=== PATIENT | male | born 1965 | race Caucasian/White ===

== ENCOUNTER → 2016-08-17 | Outpatient (CLI) | payer OTHER, MEDICAID | LOC: BHFA 09:00 | PROVIDERS: ATTEND Internal Medicine Cardiovascular Disease | DX: I46.9 Cardiac arrest, cause unspecified (principal) ==

== ENCOUNTER → 2016-08-22 | Outpatient (CLI) | payer OTHER, MEDICAID | LOC: BHFA 11:30 | PROVIDERS: ATTEND Internal Medicine Cardiovascular Disease | DX: R07.9 Chest pain, unspecified (principal) ==

== ENCOUNTER → 2018-08-08 | Outpatient (CLI) | payer OTHER, MEDICAID ==
[~2018-08-08] MED LIST: IOPAMIDOL (ISOVUE 370) 100 ML BTL IV ONE
== END ==
LOC: FIMAGING 12:53
PROVIDERS: ATTEND Internal Medicine Gastroenterology
DX: K57.30 Diverticulosis of large intestine without perforation or abscess without bleeding (principal); I70.8 Atherosclerosis of other arteries
CPT/HCPCS: 74177; Q9967

== ENCOUNTER 2018-08-15 14:31 | Inpatient (IN) | payer OTHER, MEDICAID ==
[2018-08-15] MEDS ORDERED: NS 1,000 ML IV ONE (14:38)
--- NOTE | 2018-08-15 14:41 | EDPHY ---
H & P Stated Complaint: Found down outside of home. BS 140. Pt doesnt know what happened Time Seen by Provider: 08/15/18 14:39 HPI/ROS: HPI CHIEF COMPLAINT: Found down on sidewalk. Patient unsure what happened. HISTORY OF PRESENT ILLNESS: 52-year-old male, poor historian, presents emergency room the by EMS after an neighbor found him unresponsive on the sidewalk face down. Patient does not recall what happened. He states he has medical problems but is unsure what medications he takes. He thinks he has asthma/COPD. He denies any chest pain or shortness of breath. He presents to the emergency room with a bloody nose. He denies any neck or headache. Denies chest pain or shortness of breath. Patient is unsure what happened. EMS reports that neighbors woke him up when he they found him outside on the sidewalk. He stated to come 2-3 minutes to get up. Past Medical History: Asthma. Possible COPD. Takes metformin. Cardiac arrest. Schizophrenia. Past Surgical History: No recent surgical history Social History: Denies drugs or alcohol. Does smoke tobacco. Occasional marijuana. Family History: Noncontributory ROS REVIEW OF SYSTEMS: Poor historian. Exam Constitutional nontoxic, obese, triage nursing summary reviewed, vital signs reviewed, awake/alert. Vital signs stable Eyes normal conjunctivae and sclera, EOMI, PERRLA. HENT epistaxis without any significant septal hematoma on exam, otherwise midface and head and neck atraumatic, normal inspection, atraumatic, moist mucus membranes, no epistaxis, neck supple/ no meningismus, no raccoon eyes. Respiratory clear to auscultation bilaterally, normal breath sounds, no respiratory distress, no wheezing. Cardiovascular rate normal, regular rhythm, no murmur, no edema, distal pulses normal. Gastrointestinal soft, non-tender, no rebound, no guarding, normal bowel sounds, no distension, no pulsatile mass. Genitourinary no CVA tenderness. Musculoskeletal no midline vertebral tenderness, full range of motion, no calf swelling, no tenderness of extremities, no meningismus, good pulses, neurovascularly intact. Skin pink, warm, & dry, no rash, skin atraumatic. Neurologic awake, alert and oriented x 3, AAOx3, moves all 4 extremities equally, motor intact, sensory intact, CN II-XII intact, normal cerebellar, normal vision, normal speech. Psychiatric normal mood/affect. Heme/Lymph/Immune no lymphadenopathy. Differential Diagnosis: Includes but is not limited to in a particular order syncope, cardiac arrhythmia, ACS, PE, intracranial bleed, cervical spine injury , facial trauma Medical Decision Making: Plan for this patient he is unsure what happened to him he does not recall the events he was found unresponsive on the sidewalk face down with a bloody nose. Re-evaluation: Plan for this patient IV establishment surveillance monitor obtain EKG basic blood work, CT scan head without contrast CT cervical spine without contrast, chest x- ray, troponin, electrolytes and re-evaluate. EKG interpretation by me on record in [employer] system. Impression time of EKG 1449, sinus rhythm rate of 98 without any signs of acute ischemia. CT scan head without contrast and CT cervical spine without contrast negative for acute traumatic injury called to me by Dr. Duran. Troponin noted be negative. Chest x-ray are unremarkable CT scan head without and cervical spine negative. Sodium slightly low. Plan for admission the hospital for syncope. Plan for this patient unexplained syncope and found down on the sidewalk. Plan for admission to the hospital I spoke with Dr. Smiley, Who agrees to admit. Source: Patient, EMS Exam Limitations: Clinical condition - Personal History Current Tetanus Diphtheria and Acellular Pertussis (TDAP): Unsure - Medical/Surgical History Hx Asthma: Yes Hx Diabetes: Yes Other PMH: dm, asthma, copd - Social History Smoking Status: Current every day smoker Constitutional: Initial Vital Signs Temperature (C) 36.8 C 08/15/18 14:34 Heart Rate 105 H 08/15/18 14:34 Respiratory Rate 16 08/15/18 14:34 Blood Pressure 151/102 H 08/15/18 14:34 O2 Sat (%) 94 08/15/18 14:34 O2 Delivery Mode Room Air O2 (L/minute) 2 Allergies/Adverse Reactions: No Known Allergies Allergy (Unverified 01/10/11 17:15) Home Medications: Medication Instructions Recorded ARIPiprazole [Abilify] 30 mg PO DAILY 08/15/18 Albuterol [Proventil Inhaler HFA 1 - 2 puffs IH Q4H PRN 08/15/18 (*)] Atorvastatin Calcium [Lipitor 40 40 mg PO DAILY 08/15/18 mg (*)] Gabapentin [Neurontin 100 MG (*)] 100 mg PO QID 08/15/18 Levothyroxine [Synthroid 25 mcg 25 mcg PO DAILY06 08/15/18 (*)] Lisinopril [Zestril 40 mg (*)] 40 mg PO DAILY 08/15/18 Metoprolol Tartrate [Lopressor 25 25 mg PO BID 08/15/18 mg (*)] QUEtiapine FUMARATE [Seroquel 100 100 mg PO HS 08/15/18 mg (*)] QUEtiapine FUMARATE [Seroquel 50 50 mg PO HS 08/15/18 mg (*)] Tamsulosin HCl [Flomax 0.4 MG (*)] 0.4 mg PO DAILY 08/15/18 Venlafaxine HCl [Venlafaxine HCl 75 mg PO DAILY 08/15/18 ER] amLODIPine BESYLATE [Amlodipine 5 mg PO DAILY 08/15/18 Besylate] metFORMIN HCL [Metformin HCl ER] 500 mg PO BIDMEAL 08/15/18 Medical Decision Making - Diagnostics Imaging Results: Imaging Impressions Cervical Spine CT 08/15/18 14:38 Impression: No evidence for acute intracranial abnormality. CT cervical spine without contrast History: Trauma. Fall. Technique: 1.5-mm helical images were obtained of the cervical spine without contrast. Multiplanar reformation was performed. Radiation dose reduction technique was utilized. Findings: There is mild reversal of the normal lordotic curvature. No evidence for fracture or subluxation. There is disk height narrowing and osteophytosis at multiple levels in the cervical spine. No evidence for prevertebral soft tissue swelling. Vascular calcifications are seen in the carotids bilaterally, indicating atherosclerotic change. Mild scarring is seen at the left lung apex. Degenerative change is seen at the sternoclavicular joint bilaterally. C2-C3 level demonstrates facet arthropathy bilaterally, more predominant on the left with moderate left neural foraminal narrowing. C3-C4 level demonstrates uncovertebral joint hypertrophy on the left. There is facet arthropathy bilaterally. There is mild left neural foraminal narrowing. C4-C5 level demonstrates a broad-based annular bulge and posterior osteophytosis. Uncovertebral joint hypertrophy is seen bilaterally. There is mild bilateral neural foraminal narrowing. C5-C6 level demonstrates a mild broad-based annular bulge and posterior osteophytosis. Uncovertebral joint hypertrophy is seen bilaterally and facet arthropathy bilaterally with mild bilateral neural foraminal narrowing. C6-C7 level demonstrates mild uncovertebral joint hypertrophy on the left and mild facet arthropathy with minimal left neural foraminal narrowing. C7-T1 level demonstrates facet arthropathy with minimal bilateral neural foraminal narrowing. Impression: No evidence for acute fracture. Multilevel degenerative disk and degenerative joint disease in the cervical spine. Evidence of atherosclerotic disease in the carotid arteries bilaterally. Results called and discussed with Dr. Luis Alberto Sidhu on August 15, 2018 at 1531 hours. Chest X-Ray 08/15/18 14:38 Impression: Negative portable trauma chest. Head CT 08/15/18 14:38 Impression: No evidence for acute intracranial abnormality. CT cervical spine without contrast History: Trauma. Fall. Technique: 1.5-mm helical images were obtained of the cervical spine without contrast. Multiplanar reformation was performed. Radiation dose reduction technique was utilized. Findings: There is mild reversal of the normal lordotic curvature. No evidence for fracture or subluxation. There is disk height narrowing and osteophytosis at multiple levels in the cervical spine. No evidence for prevertebral soft tissue swelling. Vascular calcifications are seen in the carotids bilaterally, indicating atherosclerotic change. Mild scarring is seen at the left lung apex. Degenerative change is seen at the sternoclavicular joint bilaterally. C2-C3 level demonstrates facet arthropathy bilaterally, more predominant on the left with moderate left neural foraminal narrowing. C3-C4 level demonstrates uncovertebral joint hypertrophy on the left. There is facet arthropathy bilaterally. There is mild left neural foraminal narrowing. C4-C5 level demonstrates a broad-based annular bulge and posterior osteophytosis. Uncovertebral joint hypertrophy is seen bilaterally. There is mild bilateral neural foraminal narrowing. C5-C6 level demonstrates a mild broad-based annular bulge and posterior osteophytosis. Uncovertebral joint hypertrophy is seen bilaterally and facet arthropathy bilaterally with mild bilateral neural foraminal narrowing. C6-C7 level demonstrates mild uncovertebral joint hypertrophy on the left and mild facet arthropathy with minimal left neural foraminal narrowing. C7-T1 level demonstrates facet arthropathy with minimal bilateral neural foraminal narrowing. Impression: No evidence for acute fracture. Multilevel degenerative disk and degenerative joint disease in the cervical spine. Evidence of atherosclerotic disease in the carotid arteries bilaterally. Results called and discussed with Dr. Luis Alberto Sidhu on August 15, 2018 at 1531 hours. - Data Points Laboratory Results: Laboratory Results 08/15/18 14:58 08/15/18 14:58 08/15/18 08/15/18 08/15/18 15:02 14:58 14:58 WBC RBC Hgb Hct MCV MCH MCHC RDW Plt Count MPV Neut % (Auto) Lymph % (Auto) [place] % (Auto) Eos % (Auto) Baso % (Auto) Nucleat RBC Rel Count Absolute Neuts (auto) Absolute Lymphs (auto) Absolute Monos (auto) Absolute Eos (auto) Absolute Basos (auto) Absolute Nucleated RBC Immature Gran % Immature Gran # PT INR APTT D-Dimer 1.99 ug/mLFEU H ug/mLFEU (0.00-0.50) Sodium 128 mEq/L L mEq/L (135-145) Potassium 4.7 mEq/L mEq/L (3.5-5.2) Chloride 93 mEq/L L mEq/L (97-110) Carbon Dioxide 23 mEq/l mEq/l (22-31) Anion Gap 12 mEq/L mEq/L (6-14) BUN 7 mg/dL mg/dL (7-23) Creatinine 0.6 mg/dL L mg/dL (0.7-1.3) Estimated GFR > 60 Glucose 149 mg/dL H mg/dL (70-100) Calcium 8.8 mg/dL mg/dL (8.5-10.4) Magnesium Total Bilirubin Conjugated Bilirubin Unconjugated Bilirubin AST ALT Alkaline Phosphatase POC Troponin I 0.02 ng/mL ng/mL (0.00-0.08) Total Protein Albumin Lipase Ethyl Alcohol < 10 mg/dL mg/dL (0-10) 08/15/18 08/15/18 08/15/18 14:58 14:58 14:00 WBC 8.98 10^3/uL 10^3/uL (3.80-9.50) RBC 4.66 10^6/uL 10^6/uL (4.40-6.38) Hgb 16.1 g/dL g/dL (13.7-17.5) Hct 46.3 % % (40.0-51.0) MCV 99.4 fL fL (81.5-99.8) MCH 34.5 pg H pg (27.9-34.1) MCHC 34.8 g/dL g/dL (32.4-36.7) RDW 13.9 % % (11.5-15.2) Plt Count 204 10^3/uL 10^3/uL (150-400) MPV 11.0 fL fL (8.7-11.7) Neut % (Auto) 68.6 % % (39.3-74.2) Lymph % (Auto) 21.3 % % (15.0-45.0) [place] % (Auto) 7.3 % % (4.5-13.0) Eos % (Auto) 1.2 % % (0.6-7.6) Baso % (Auto) 0.6 % % (0.3-1.7) Nucleat RBC Rel Count 0.0 % % (0.0-0.2) Absolute Neuts (auto) 6.16 10^3/uL 10^3/uL (1.70-6.50) Absolute Lymphs (auto) 1.91 10^3/uL 10^3/uL (1.00-3.00) Absolute Monos (auto) 0.66 10^3/uL 10^3/uL (0.30-0.80) Absolute Eos (auto) 0.11 10^3/uL 10^3/uL (0.03-0.40) Absolute Basos (auto) 0.05 10^3/uL 10^3/uL (0.02-0.10) Absolute Nucleated RBC 0.00 10^3/uL 10^3/uL (0-0.01) Immature Gran % 1.0 % % (0.0-1.1) Immature Gran # 0.09 10^3/uL 10^3/uL (0.00-0.10) PT 13.1 SEC SEC (12.0-15.0) INR 0.97 (0.83-1.16) APTT 25.3 SEC SEC (23.0-38.0) D-Dimer Sodium Potassium Chloride Carbon Dioxide Anion Gap BUN Creatinine Estimated GFR Glucose Calcium Magnesium 1.4 mg/dL L mg/dL (1.6-2.3) Total Bilirubin 0.5 mg/dL mg/dL (0.1-1.4) Conjugated Bilirubin 0.4 mg/dL mg/dL (0.0-0.5) Unconjugated Bilirubin 0.1 mg/dL mg/dL (0.0-1.1) AST 68 IU/L H IU/L (17-59) ALT 110 IU/L H IU/L (21-72) Alkaline Phosphatase 208 IU/L H IU/L (38-126) POC Troponin I Total Protein 8.0 g/dL g/dL (6.3-8.2) Albumin 4.3 g/dL g/dL (3.5-5.0) Lipase 315 IU/L H IU/L (23-300) Ethyl Alcohol Medications Given: Gabapentin (Neurontin) 100 mg PO QID HELIO Stop: 02/11/19 20:59 Last Admin: 08/15/18 20:23 Dose: 100 mg Sodium Chloride (Ns) 1,000 mls @ 75 mls/hr IV CONT HELIO Stop: 02/11/19 16:29 Last Admin: 08/15/18 20:23 Dose: 1,000 mls Melatonin (Melatonin) 3 mg PO HS HELIO Stop: 02/11/19 20:59 Last Admin: 08/15/18 20:23 Dose: 3 mg Metoprolol Tartrate (Lopressor) 25 mg PO BID HELIO Stop: 02/11/19 20:59 Last Admin: 08/15/18 20:23 Dose: 25 mg Quetiapine Fumarate (Seroquel) 100 mg PO HS HELIO Stop: 02/11/19 20:59 Last Admin: 08/15/18 20:22 Dose: 100 mg Quetiapine Fumarate (Seroquel) 50 mg PO HS HELIO Stop: 02/11/19 20:59 Last Admin: 08/15/18 20:22 Dose: 50 mg Discontinued Medications Sodium Chloride (Ns) 1,000 mls @ 0 mls/hr IV ONCE ONE; Wide Open PRN Reason: Protocol Stop: 08/15/18 14:39 Last Admin: 08/15/18 15:01 Dose: 1,000 mls Magnesium Sulfate (Magnesium Sulf 2 Gm (Premix)) 50 mls @ 50 mls/hr IV ONCE ONE Stop: 08/15/18 18:17 Last Admin: 08/15/18 20:23 Dose: 50 mls Point of Care Test Results: Chemistry 08/15/18 15:02 POC Troponin I 0.02 ng/mL ng/mL (0.00-0.08) Departure - Departure Disposition: [facility] Inpatient Acute Clinical Impression: Syncope Condition: Fair
[2018-08-15 15:21] LABS: PLATELET COUNT 204 10^3/uL (150-400)
[2018-08-15 15:33] LABS: INR 0.97 (0.83-1.16); PROTIME(PATIENT) 13.1 SEC (12.0-15.0)
[2018-08-15] MEDS ORDERED: ONDANSETRON 4 MG/2 ML VIAL IVP PRN (16:29)
[2018-08-15] MEDS ORDERED: PROTOCOL MAGNESIUM 1 DOSE IV PRN (16:58)
[2018-08-15] MEDS ORDERED: MAGNESIUM SULF 2 GM/WATER 50 ML IV ONE (17:18)
[2018-08-15] MEDS ORDERED: ONDANSETRON DISINTEGRATING 4 MG TAB PO PRN (17:37)
--- NOTE | 2018-08-15 17:53 | PDGENHP ---
<Steffi Haji - Last Filed: 08/15/18 18:57> History and Physical - Chief Complaint Syncopal episode - History of Present Illness 52 y/o male with history of cardiac arrest, obesity, and hyperlipidemia presents via EMS after a neighbor found him unresponsive on the sidewalk face down. The patient is unable to recall events leading up to the syncopal episode. He is A&Ox2 (person, place). Per the neighbor, it took him 2-3 minutes to become responsive. The pt remember being in a stretcher and the "couch" in the ambulance. He presented with a bloody nose. This is my first encounter with the pt. He reports left sided anterior chest pain below the nipple that he rates 7/10 in intensity and describes it as stabbing. It worsens when he inhales deeply. Pain does not radiate. Endorses nausea, no vomiting. Cervical spine CT, head CT, CXR are unremarkable however do note bilateral carotid arthrosclerosis. He is a poor historian. Primary care physician: Jacqueline Parsons at [facility]. He is being admitted for further diagnostic work-up and monitoring. Past Medical/Surgical History 1. GREGORY with CPAP (however, it has been noted in previous records he has been noncompliant with use) 2. COPD/restrictive disease 3. Depression 4. Cardiac arrest (2016) 5. Paranoid schizophrenia 6. Hyperlipidemia 7. Obesity 8. Diabetes II 9. Hypertension Social 1. Smokes a pack of cigarettes/day. Occasionally smokes cannabis. Denies alcohol use. 2. Has housing through [facility] [facility]; on disability History Information - Allergies/Home Medication List Allergies/Adverse Reactions: No Known Allergies Allergy (Unverified 01/10/11 17:15) Home Medications: ARIPiprazole [Abilify] 30 mg PO DAILY 08/15/18 [Last Taken Unknown] Albuterol [Proventil Inhaler HFA (*)] 1 - 2 puffs IH Q4H PRN 08/15/18 [Last Taken Unknown] Atorvastatin Calcium [Lipitor 40 mg (*)] 40 mg PO DAILY 08/15/18 [Last Taken Unknown] Gabapentin [Neurontin 100 MG (*)] 100 mg PO QID 08/15/18 [Last Taken Unknown] Levothyroxine [Synthroid 25 mcg (*)] 25 mcg PO DAILY06 08/15/18 [Last Taken Unknown] Lisinopril [Zestril 40 mg (*)] 40 mg PO DAILY 08/15/18 [Last Taken Unknown] Metoprolol Tartrate [Lopressor 25 mg (*)] 25 mg PO BID 08/15/18 [Last Taken Unknown] QUEtiapine FUMARATE [Seroquel 100 mg (*)] 100 mg PO HS 08/15/18 [Last Taken Unknown] QUEtiapine FUMARATE [Seroquel 50 mg (*)] 50 mg PO HS 08/15/18 [Last Taken Unknown] Tamsulosin HCl [Flomax 0.4 MG (*)] 0.4 mg PO DAILY 08/15/18 [Last Taken Unknown] Venlafaxine HCl [Venlafaxine HCl ER] 75 mg PO DAILY 08/15/18 [Last Taken Unknown ] amLODIPine BESYLATE [Amlodipine Besylate] 5 mg PO DAILY 08/15/18 [Last Taken Unknown] metFORMIN HCL [Metformin HCl ER] 500 mg PO BIDMEAL 08/15/18 [Last Taken Unknown] I have personally reviewed and updated: family history, medical history, social history, surgical history Past Medical History: See HPI list - Surgical History Additional surgical history: See HPI list - Family History Positive for: non-pertinent - Social History Smoking Status: Current every day smoker Alcohol Use: None Drug Use: Marijuana Review of Systems Review of Systems: ROS: 10pt was reviewed & negative except for what was stated in HPI & below Constitutional: Reports: recent injury, weakness EENMT: Reports: nose pain Cardiac: Reports: chest pain Respiratory: Reports: no symptoms Gastrointestinal: Reports: nausea Genitourinary: Reports: no symptoms Muscolosketal: Reports: no symptoms Skin: Reports: no symptoms Neurological: Reports: depressed, emotional problems Hematologic/Lymphatic: Reports: no symptoms Immunologic/Allergy: Reports: no symptoms Physical Exam Physical Exam: Lab data and imaging were reviewed Temp Pulse Resp BP Pulse Ox 36.9 C 84 13 129/88 H 90 L 08/15/18 17:40 08/15/18 17:40 08/15/18 17:40 08/15/18 17:40 08/15/18 17:40 Constitutional: no apparent distress, appears nourished, not in pain, obese, unkempt Eyes: PERRL, anicteric sclera, EOMI Ears, Nose, Mouth, Throat: hearing normal, ears appear normal, no oral mucosal ulcers, dry mucous membranes Cardiovascular: regular rate and rhythym, no murmur, rub, or gallop, tachycardia , No edema Peripheral Pulses: 2+: dorsalis-pedis (R) (Radial 2+), dorsalis-pedis (L) ( Radial 2+) Respiratory: expiratory wheeze Gastrointestinal: soft, non-tender abdomen, no palpable masses, other ( Hypoactive bowel sounds) Genitourinary: no bladder fullness, no bladder tenderness Skin: warm, normal color, no fluctuance, no induration, abrasion (Nose), No mottled Musculoskeletal: full muscle strength, no muscle tenderness, normal joint ROM, no joint effusions Neurologic: AAOx3, sensation intact bilaterally, CN II-XII Intact Psychiatric: flat affect, poor memory Lymph, Heme, Immunologic: no cervical LAD, no supraclavicular LAD Lab Data & Imaging Review 08/15/18 14:58 08/15/18 14:58 WBC 8.98 10^3/uL (3.80-9.50) 08/15/18 14:58 RBC 4.66 10^6/uL (4.40-6.38) 08/15/18 14:58 Hgb 16.1 g/dL (13.7-17.5) 08/15/18 14:58 Hct 46.3 % (40.0-51.0) 08/15/18 14:58 MCV 99.4 fL (81.5-99.8) 08/15/18 14:58 MCH 34.5 pg (27.9-34.1) H 08/15/18 14:58 MCHC 34.8 g/dL (32.4-36.7) 08/15/18 14:58 RDW 13.9 % (11.5-15.2) 08/15/18 14:58 Plt Count 204 10^3/uL (150-400) 08/15/18 14:58 MPV 11.0 fL (8.7-11.7) 08/15/18 14:58 Neut % (Auto) 68.6 % (39.3-74.2) 08/15/18 14:58 Lymph % (Auto) 21.3 % (15.0-45.0) 08/15/18 14:58 [place] % (Auto) 7.3 % (4.5-13.0) 08/15/18 14:58 Eos % (Auto) 1.2 % (0.6-7.6) 08/15/18 14:58 Baso % (Auto) 0.6 % (0.3-1.7) 08/15/18 14:58 Nucleat RBC Rel Count 0.0 % (0.0-0.2) 08/15/18 14:58 Absolute Neuts (auto) 6.16 10^3/uL (1.70-6.50) 08/15/18 14:58 Absolute Lymphs (auto) 1.91 10^3/uL (1.00-3.00) 08/15/18 14:58 Absolute Monos (auto) 0.66 10^3/uL (0.30-0.80) 08/15/18 14:58 Absolute Eos (auto) 0.11 10^3/uL (0.03-0.40) 08/15/18 14:58 Absolute Basos (auto) 0.05 10^3/uL (0.02-0.10) 08/15/18 14:58 Absolute Nucleated RBC 0.00 10^3/uL (0-0.01) 08/15/18 14:58 Immature Gran % 1.0 % (0.0-1.1) 08/15/18 14:58 Immature Gran # 0.09 10^3/uL (0.00-0.10) 08/15/18 14:58 PT 13.1 SEC (12.0-15.0) 08/15/18 14:58 INR 0.97 (0.83-1.16) 08/15/18 14:58 APTT 25.3 SEC (23.0-38.0) 08/15/18 14:58 Sodium 128 mEq/L (135-145) L 08/15/18 14:58 Potassium 4.7 mEq/L (3.5-5.2) 08/15/18 14:58 Chloride 93 mEq/L (97-110) L 08/15/18 14:58 Carbon Dioxide 23 mEq/l (22-31) 08/15/18 14:58 Anion Gap 12 mEq/L (6-14) 08/15/18 14:58 BUN 7 mg/dL (7-23) 08/15/18 14:58 Creatinine 0.6 mg/dL (0.7-1.3) L 08/15/18 14:58 Estimated GFR > 60 08/15/18 14:58 Glucose 149 mg/dL (70-100) H 08/15/18 14:58 Calcium 8.8 mg/dL (8.5-10.4) 08/15/18 14:58 Magnesium 1.4 mg/dL (1.6-2.3) L 08/15/18 14:00 Total Bilirubin 0.5 mg/dL (0.1-1.4) 08/15/18 14:00 Conjugated Bilirubin 0.4 mg/dL (0.0-0.5) 08/15/18 14:00 Unconjugated Bilirubin 0.1 mg/dL (0.0-1.1) 08/15/18 14:00 AST 68 IU/L (17-59) H 08/15/18 14:00 ALT 110 IU/L (21-72) H 08/15/18 14:00 Alkaline Phosphatase 208 IU/L (38-126) H 08/15/18 14:00 POC Troponin I 0.02 ng/mL (0.00-0.08) 08/15/18 15:02 Total Protein 8.0 g/dL (6.3-8.2) 08/15/18 14:00 Albumin 4.3 g/dL (3.5-5.0) 08/15/18 14:00 Lipase 315 IU/L (23-300) H 08/15/18 14:00 Ethyl Alcohol < 10 mg/dL (0-10) 08/15/18 14:58 Assessment & Plan Plan: This is a 52 y/o male presenting after a syncopal episode today and cannot remember the circumstances leading up to the event. He can't remember last night either or the day before that. After further questioning, he did remember he took his medications this morning and he went out to retrieve his mail but that is all he can remember. 1. Syncopal episode with unknown etiology: he has had a cardiac arrest in June 2016. Echo was performed July 2016 and was unremarkable with LVEF 65%. He is c/o chest pain now. Heart score 2 (age and 1-2 risk factors). -First troponin negative (0.02); cycle one troponin tonight and another tomorrow morning -EKG was SR with no acute ischemia or evidence of ST elevation. Cycle one more EKG tomorrow morning. -Continuous tele monitoring -Drug tox screen pending; etoh screen negative -Checking TSH -D-dimer elevated (1.99): ordered Chest CTA to r/o pulmonary embolism ( tachycardic, chest pain/pleuritic pain, worsens with deep inspiration) -Consulted neurology: I spoke with Dr. Pierre Almanza who will evaluate the pt tomorrow. Recommended brain MRI w/ IV contrast. Consider ordering brain MRI should chest CTA be negative. 2. Hyponatremia (128) -IVF -Checking urine sodium -Recheck BMP tomorrow 3. Hypomagnesemia (1.7) -Initiated magnesium protocol -Replace with IV magnesium 4. Diabetes -Holding metformin while in hospital -Initiated insulin sliding scale 5. COPD: on albuterol PRN. may continue 6. Hypertension: currently stable. on norvasc, lisinopril, metoprolol 7. Depression/schizophrenia: on Abilify, gabapentin, seroquel, venlafaxine Diet: Regular VTE ppx: SCDs Code: Full Dispo: Admit to inpatient <Nikunj Smiley - Last Filed: 08/15/18 22:36> History and Physical - History of Present Illness Review of Systems Review of Systems: Physical Exam Physical Exam: Temp Pulse Resp BP Pulse Ox 36.8 C 84 14 129/88 H 96 08/15/18 20:00 08/15/18 20:23 08/15/18 20:00 08/15/18 20:23 08/15/18 20:00 O2 (L/minute) 2 Lab Data & Imaging Review 08/15/18 14:58 08/15/18 14:58 WBC 8.98 10^3/uL (3.80-9.50) 08/15/18 14:58 RBC 4.66 10^6/uL (4.40-6.38) 08/15/18 14:58 Hgb 16.1 g/dL (13.7-17.5) 08/15/18 14:58 Hct 46.3 % (40.0-51.0) 08/15/18 14:58 MCV 99.4 fL (81.5-99.8) 08/15/18 14:58 MCH 34.5 pg (27.9-34.1) H 08/15/18 14:58 MCHC 34.8 g/dL (32.4-36.7) 08/15/18 14:58 RDW 13.9 % (11.5-15.2) 08/15/18 14:58 Plt Count 204 10^3/uL (150-400) 08/15/18 14:58 MPV 11.0 fL (8.7-11.7) 08/15/18 14:58 Neut % (Auto) 68.6 % (39.3-74.2) 08/15/18 14:58 Lymph % (Auto) 21.3 % (15.0-45.0) 08/15/18 14:58 Radford % (Auto) 7.3 % (4.5-13.0) 08/15/18 14:58 Eos % (Auto) 1.2 % (0.6-7.6) 08/15/18 14:58 Baso % (Auto) 0.6 % (0.3-1.7) 08/15/18 14:58 Nucleat RBC Rel Count 0.0 % (0.0-0.2) 08/15/18 14:58 Absolute Neuts (auto) 6.16 10^3/uL (1.70-6.50) 08/15/18 14:58 Absolute Lymphs (auto) 1.91 10^3/uL (1.00-3.00) 08/15/18 14:58 Absolute Monos (auto) 0.66 10^3/uL (0.30-0.80) 08/15/18 14:58 Absolute Eos (auto) 0.11 10^3/uL (0.03-0.40) 08/15/18 14:58 Absolute Basos (auto) 0.05 10^3/uL (0.02-0.10) 08/15/18 14:58 Absolute Nucleated RBC 0.00 10^3/uL (0-0.01) 08/15/18 14:58 Immature Gran % 1.0 % (0.0-1.1) 08/15/18 14:58 Immature Gran # 0.09 10^3/uL (0.00-0.10) 08/15/18 14:58 PT 13.1 SEC (12.0-15.0) 08/15/18 14:58 INR 0.97 (0.83-1.16) 08/15/18 14:58 APTT 25.3 SEC (23.0-38.0) 08/15/18 14:58 D-Dimer 1.99 ug/mLFEU (0.00-0.50) H 08/15/18 14:58 Sodium 128 mEq/L (135-145) L 08/15/18 14:58 Potassium 4.7 mEq/L (3.5-5.2) 08/15/18 14:58 Chloride 93 mEq/L (97-110) L 08/15/18 14:58 Carbon Dioxide 23 mEq/l (22-31) 08/15/18 14:58 Anion Gap 12 mEq/L (6-14) 08/15/18 14:58 BUN 7 mg/dL (7-23) 08/15/18 14:58 Creatinine 0.6 mg/dL (0.7-1.3) L 08/15/18 14:58 Estimated GFR > 60 08/15/18 14:58 Glucose 149 mg/dL (70-100) H 08/15/18 14:58 Calcium 8.8 mg/dL (8.5-10.4) 08/15/18 14:58 Magnesium 1.4 mg/dL (1.6-2.3) L 08/15/18 14:00 Total Bilirubin 0.5 mg/dL (0.1-1.4) 08/15/18 14:00 Conjugated Bilirubin 0.4 mg/dL (0.0-0.5) 08/15/18 14:00 Unconjugated Bilirubin 0.1 mg/dL (0.0-1.1) 08/15/18 14:00 AST 68 IU/L (17-59) H 08/15/18 14:00 ALT 110 IU/L (21-72) H 08/15/18 14:00 Alkaline Phosphatase 208 IU/L (38-126) H 08/15/18 14:00 POC Troponin I 0.02 ng/mL (0.00-0.08) 08/15/18 15:02 Troponin I 0.062 ng/mL (0.000-0.034) H 08/15/18 19:30 Total Protein 8.0 g/dL (6.3-8.2) 08/15/18 14:00 Albumin 4.3 g/dL (3.5-5.0) 08/15/18 14:00 Lipase 315 IU/L (23-300) H 08/15/18 14:00 TSH 5.070 uIU/mL (0.465-4.680) H 08/15/18 19:30 Urine Color PALE YELLOW 08/15/18 18: Urine Appearance CLEAR 08/15/18 18: Urine pH 7.0 (5.0-7.5) 08/15/18 18: Ur Specific [place] 1.002 (1.002-1.030) 08/15/18 18: Urine Protein NEGATIVE (NEGATIVE) 08/15/18 18: Urine Ketones NEGATIVE (NEGATIVE) 08/15/18 18: Urine Blood 1+ (NEGATIVE) H 08/15/18 18: Urine Nitrate NEGATIVE (NEGATIVE) 08/15/18 18: Urine Bilirubin NEGATIVE (NEGATIVE) 08/15/18 18: Urine Urobilinogen NEGATIVE EU (0.2-1.0) 08/15/18 18: Ur Leukocyte Esterase NEGATIVE (NEGATIVE) 08/15/18 18: Urine RBC 1-3 /hpf (0-3) 08/15/18 18: Urine WBC 1-3 /hpf (0-3) 08/15/18 18:26 Ur Epithelial Cells NONE SEEN /lpf (NONE-1+) 08/15/18 18: Ur Random Sodium 27 mEq/L (30-90) L 08/15/18 18: Urine Glucose NEGATIVE (NEGATIVE) 08/15/18 18: Urine Opiates Screen NEGATIVE ng/mL (NEGATIVE) 08/15/18 18: Urine Barbiturates NEGATIVE ng/mL (NEGATIVE) 08/15/18 18: Ur Phencyclidine Scrn NEGATIVE ng/mL (NEGATIVE) 08/15/18 18: Ur Amphetamines Screen NEGATIVE ng/mL (NEGATIVE) 08/15/18 18:26 U Benzodiazepines Scrn NEGATIVE ng/mL (NEGATIVE) 08/15/18 18:26 Urine Cocaine Screen NEGATIVE ng/mL (NEGATIVE) 08/15/18 18:26 U Marijuana (THC) Screen 66 ng/mL (NEGATIVE) 08/15/18 18:26 Ethyl Alcohol < 10 mg/dL (0-10) 08/15/18 14:58 Assessment & Plan Assessment: Syncope (Acute) Plan: Hospitalist note I have evaluated the patient at the bedside on this date and reviewed the patient with Cristy Haji nurse practitioner in detail and I have also reviewed the patient with Dr. Luis Alberto Sidhu. I reviewed this patient's clinic records in detail and in the Cardiology Clinic notes it is mentioned that the patient has a reported history of cardiac arrest some years ago evaluated at another hospital. Details are unclear and there is some mention of the patient possibly having been told by the outside stone paver at that time that he had a possible stress cardiomyopathy syndrome. In the recent past here the patient has had unremarkable nuclear stress testing, unremarkable Holter monitoring, and an echocardiogram showing ejection fraction in the 60s, up from previously low 40s. He sees Dr. Andrew Berrios who diagnosis the patient with hypertensive heart disease. In addition to the COPD mentioned above, his records also show that he has a history of CB apnea and has used CPAP at least in the past. At this time when I try and interviewed the patient he will not talk with me states that he only wants to sleep at this time and only passively participates in examination I am unable to therefore to clarify whether I think the history above is entirely accurate but I believe that the patient probably does not remember anything well enough to change the history as described above. On examination he is obese, awakens, confirms his name, but will not answer any other questions for me stating once ago sleep. He is obese He is breathing adequately Skin is warm dry Lungs are diminished but clear Heart tones are in audible Neck is too obese to determine jugular venous distension There is 1+ edema of the legs I reviewed his sodium which is at 128 and other labs are reviewed as well I did order urine sodium which comes back at 27 going along with his hypervolemic hyponatremia with heart disease DIAGNOSES: * Presumed syncope today found unconscious on sidewalk with facial injury in the way of nose bleed * Left-sided chest discomfort could potentially be due to his fall or could be cardiac though has recent negative nuclear stress test * Mild Acute R sidedCHF * No evidence of pulmonary embolisms on CT today * Newly diagnosed spiculated lung nodule in the right lung 1.5 cm * Hypervolemic hyponatremia with low urine sodium is likely due to heart failure , not consistent with SIADH * History of self-reported cardiac arrest diagnosed at another hospital, with question of possible Takotsubo stress myocarditis at that time but records not available for my review * Recent negative cardiac workup here including echo, Holter, stress with myocardial perfusion * Known COPD, sleep apnea, and I suspect also has pulmonary hypertension, may have obesity hypoventilation syndrome * Diabetes * Morbid obesity * Schizophrenia Of significant concern in this patient is the use of both Abilify and Seroquel which can cause QT prolongation, a arrhythmias and sudden , this all in a patient who has a reported history of cardiac arrest in the past. PLANS: * I have asked Dr. Galindo Vivar to assess the patient in the morning * youth nutritional monitor * Will need to decide at this point whether we need to make any changes in his psychiatric medicines * recheck troponins * repeat ekg * lasix and follow fluid status closely * follow K and Mg closely * try to get old records re his cardiac arrest episode, but need to find where he was evaluated * He will need biopsy of his lung mass if he agrees to having this assessed; I was not able to discuss that with him as he is not willing to have any conversation with me liyah
[2018-08-15] MEDS ORDERED: D50W 25 GM/50 ML SYR IVP PRN (18:16)
[2018-08-15] MEDS ORDERED: IOPAMIDOL (ISOVUE 370) 75 ML BTL IV ONE (18:24)
[2018-08-15] MEDS ORDERED: ALBUTEROL 60 PUFFS/8 GM MDI IH PRN (18:32)
[2018-08-15] MEDS: QUEtiapine FUMARATE 100 MG TAB PO SCH (20:22)
[2018-08-15] MEDS: QUEtiapine FUMARATE 50 MG TAB PO SCH (20:22)
[2018-08-15] MEDS: NS 1,000 ML IV SCH (20:23)
[2018-08-15] MEDS: METOPROLOL TARTRATE 25 MG TAB PO SCH (20:23)
[2018-08-15] MEDS: GABAPENTIN 100 MG CAP PO SCH (20:23)
[2018-08-15] MEDS: MELATONIN 3 MG TAB PO SCH (20:23)
--- NOTE | 2018-08-15 21:57 | CPEKG ---
Test Reason : OPEN Blood Pressure : / mmHG Vent. Rate : 098 BPM Atrial Rate : 098 BPM P-R Int : 181 ms QRS Dur : 086 ms QT Int : 368 ms P-R-T Axes : 044 057 041 degrees QTc Int : 470 ms Sinus rhythm Probable left atrial enlargement Confirmed by Luis Alberto Sidhu ([id number]) on 08/15/2018 9:56:58 PM Referred By: Confirmed By:Luis Alberto Sidhu
[2018-08-15] MEDS ORDERED: PROTOCOL POTASSIUM 1 DOSE MISC PRN (22:34)
--- NOTE | 2018-08-15 22:37 | HOSPPROG ---
Hospitalist Progress Note Assessment/Plan: Hospitalist note I have evaluated the patient at the bedside on this date and reviewed the patient with Cristy Haji nurse practitioner in detail and I have also reviewed the patient with Dr. Luis Alberto Sidhu. I reviewed this patient's clinic records in detail and in the Cardiology Clinic notes it is mentioned that the patient has a reported history of cardiac arrest some years ago evaluated at another hospital. Details are unclear and there is some mention of the patient possibly having been told by the outside sixth grade teacher at that time that he had a possible stress cardiomyopathy syndrome. In the recent past here the patient has had unremarkable nuclear stress testing, unremarkable Holter monitoring, and an echocardiogram showing ejection fraction in the 60s, up from previously low 40s. He sees Dr. Andrew Berrios who diagnosis the patient with hypertensive heart disease. In addition to the COPD mentioned above, his records also show that he has a history of CB apnea and has used CPAP at least in the past. At this time when I try and interviewed the patient he will not talk with me states that he only wants to sleep at this time and only passively participates in examination I am unable to therefore to clarify whether I think the history above is entirely accurate but I believe that the patient probably does not remember anything well enough to change the history as described above. On examination he is obese, awakens, confirms his name, but will not answer any other questions for me stating once ago sleep. He is obese He is breathing adequately Skin is warm dry Lungs are diminished but clear Heart tones are in audible Neck is too obese to determine jugular venous distension There is 1+ edema of the legs I reviewed his sodium which is at 128 and other labs are reviewed as well I did order urine sodium which comes back at 27 going along with his hypervolemic hyponatremia with heart disease DIAGNOSES: * Presumed syncope today found unconscious on sidewalk with facial injury in the way of nose bleed * Left-sided chest discomfort could potentially be due to his fall or could be cardiac though has recent negative nuclear stress test * Mild Acute R sidedCHF * No evidence of pulmonary embolisms on CT today * Newly diagnosed spiculated lung nodule in the right lung 1.5 cm * Hypervolemic hyponatremia with low urine sodium is likely due to heart failure , not consistent with SIADH * History of self-reported cardiac arrest diagnosed at another hospital, with question of possible Takotsubo stress myocarditis at that time but records not available for my review * Recent negative cardiac workup here including echo, Holter, stress with myocardial perfusion * Known COPD, sleep apnea, and I suspect also has pulmonary hypertension, may have obesity hypoventilation syndrome * Diabetes * Morbid obesity * Schizophrenia Of significant concern in this patient is the use of both Abilify and Seroquel which can cause QT prolongation, a arrhythmias and sudden , this all in a patient who has a reported history of cardiac arrest in the past. PLANS: * I have asked Dr. Galindo Vivar to assess the patient in the morning * facilities planner * Will need to decide at this point whether we need to make any changes in his psychiatric medicines * recheck troponins * repeat ekg * lasix and follow fluid status closely * follow K and Mg closely * try to get old records re his cardiac arrest episode, but need to find where he was evaluated * He will need biopsy of his lung mass if he agrees to having this assessed; I was not able to discuss that with him as he is not willing to have any conversation with me tonight Objective: Vital Signs Temp Pulse Resp BP Pulse Ox 36.8 C 84 14 129/88 H 96 08/15/18 20:00 08/15/18 20:23 08/15/18 20:00 08/15/18 20:23 08/15/18 20:00 08/14/18 08/15/18 08/16/18 06:59 06:59 06:59 Intake Total 1100 Balance 1100 PT 13.1 SEC (12.0-15.0) 08/15/18 14:58 INR 0.97 (0.83-1.16) 08/15/18 14:58 ICD10 Worksheet Patient Problems: Problems Problem Status Onset Syncope Acute
[2018-08-15] MEDS ORDERED: NICOTINE 21 MG/24 HR PATCH TD ONE (22:58)
[2018-08-16] MEDS: LEVOTHYROXINE 25 MCG TAB PO SCH (04:48)
[2018-08-16] MEDS: GABAPENTIN 100 MG CAP PO SCH ×4 (04:48→22:35)
[2018-08-16] MEDS: amLODIPine BESYLATE 5 MG TAB PO SCH (09:22)
[2018-08-16] MEDS: INSULIN LISPRO 100 UNIT/ML SC SCH ×3 (09:22→19:33)
[2018-08-16] MEDS: LISINOPRIL 40 MG TAB PO SCH (09:22)
[2018-08-16] MEDS: ATORVASTATIN CALCIUM 40 MG TAB PO SCH (09:22)
[2018-08-16] MEDS: TAMSULOSIN HCL 0.4 MG CAP PO SCH (09:22)
[2018-08-16] MEDS: VENLAFAXINE XR 75 MG CAP PO SCH (09:22)
[2018-08-16] MEDS: ARIPiprazole 10 MG TAB PO SCH (09:22)
[2018-08-16] MEDS: METOPROLOL TARTRATE 25 MG TAB PO SCH ×2 (09:22→22:36)
--- NOTE | 2018-08-16 11:27 | PDCARCONS ---
Cardiology Consult Reason for Consult: Syncope. Chief Complaint: Syncope. Requesting Physician: Dr. Neymar Smiley. History of Present Illness: This is a 52-year-old male seen in consultation on the PCU with an episode of syncope. Interestingly, I have seen him in the past. I do not have all the details of his previous hospitalization however, in 2010 he was hospitalized at a [facility] with what was likely severe pneumonia. This resulted in respiratory failure necessitating intubation. At 1 point he developed a cardiac arrest. The exact mechanism of that arrest is unknown at the present time. I do recall that he had CPR at that time. Ultimately underwent cardiac catheterization. This revealed no evidence of obstructive coronary disease. His ejection fraction was low normal at 45 to 50% with apical hypokinesis. The remainder of his hospital course is not entirely clear at the present time. There is no available documentation detailing the events that led to his discharge. He is now seen in consultation with an episode of syncope. He states he was at home on the date of the event and feeling well. He walked out to his mailbox to get male. He recalls picking up the mail, turning and heading back to his apartment. He had no prodrome. Apparently he had sudden loss of consciousness. There is a note in the chart that indicates that this was a witnessed event. Bystanders called EMS. EMS came to the scene and transported him here to the emergency department. In reviewing the emergency department notes, he apparently presented with epistaxis. There reports that his neighbors found him "asleep"on the sidewalk. He was arousable although appeared to be a little bit confused upon waking. There is no documented arrhythmia nor is there any documentation of hemodynamic instability. Fortunately, he did not sustain any injury. He states he was feeling well on the day of the event. Had no chest pain, chest pressure, chest heaviness or dyspnea. He had no fever, chills or sweats. He denied dizziness, lightheadedness, diarrhea, melena and hematochezia. He states he feels well currently. In reviewing telemetry he has been in sinus rhythm with no arrhythmias with the exception of isolated PVCs. History Information - Allergies/Home Medication List Allergies/Adverse Reactions: No Known Allergies Allergy (Unverified 01/10/11 17:15) Home Medications: ARIPiprazole [Abilify] 30 mg PO DAILY 08/15/18 [Last Taken Unknown] Albuterol [Proventil Inhaler HFA (*)] 1 - 2 puffs IH Q4H PRN 08/15/18 [Last Taken Unknown] Atorvastatin Calcium [Lipitor 40 mg (*)] 40 mg PO DAILY 08/15/18 [Last Taken Unknown] Gabapentin [Neurontin 100 MG (*)] 100 mg PO QID 08/15/18 [Last Taken Unknown] Levothyroxine [Synthroid 25 mcg (*)] 25 mcg PO DAILY06 08/15/18 [Last Taken Unknown] Lisinopril [Zestril 40 mg (*)] 40 mg PO DAILY 08/15/18 [Last Taken Unknown] Metoprolol Tartrate [Lopressor 25 mg (*)] 25 mg PO BID 08/15/18 [Last Taken Unknown] QUEtiapine FUMARATE [Seroquel 100 mg (*)] 100 mg PO HS 08/15/18 [Last Taken Unknown] QUEtiapine FUMARATE [Seroquel 50 mg (*)] 50 mg PO HS 08/15/18 [Last Taken Unknown] Tamsulosin HCl [Flomax 0.4 MG (*)] 0.4 mg PO DAILY 08/15/18 [Last Taken Unknown] Venlafaxine HCl [Venlafaxine HCl ER] 75 mg PO DAILY 08/15/18 [Last Taken Unknown ] amLODIPine BESYLATE [Amlodipine Besylate] 5 mg PO DAILY 08/15/18 [Last Taken Unknown] metFORMIN HCL [Metformin HCl ER] 500 mg PO BIDMEAL 08/15/18 [Last Taken Unknown] I have personally reviewed and updated: family history, medical history, social history, surgical history Past Medical History: Obstructive sleep apnea, history of cardiac arrest as described above, COPD, depression, paranoid schizophrenia, hyperlipidemia, morbid obesity, type 2 diabetes mellitus, hypertension. - Surgical History Reports: no pertinent surgical hx - Family History Positive for: non-pertinent (He currently lives in an apartment by himself. He does not use alcohol. He does use marijuana and tobacco on a near daily basis.) - Social History Smoking Status: Current every day smoker Alcohol Use: None Drug Use: Marijuana Physical Exam Physical Exam: Temp Pulse Resp BP Pulse Ox 37.2 C 81 16 132/86 H 91 L 08/16/18 08:00 08/16/18 11:20 08/16/18 11:20 08/16/18 08:00 08/16/18 11:20 O2 (L/minute) 2 Lab and Imaging 08/15/18 14:58 08/16/18 04:00 WBC 8.98 10^3/uL (3.80-9.50) 08/15/18 14:58 RBC 4.66 10^6/uL (4.40-6.38) 08/15/18 14:58 Hgb 16.1 g/dL (13.7-17.5) 08/15/18 14:58 Hct 46.3 % (40.0-51.0) 08/15/18 14:58 MCV 99.4 fL (81.5-99.8) 08/15/18 14:58 MCH 34.5 pg (27.9-34.1) H 08/15/18 14:58 MCHC 34.8 g/dL (32.4-36.7) 08/15/18 14:58 RDW 13.9 % (11.5-15.2) 08/15/18 14:58 Plt Count 204 10^3/uL (150-400) 08/15/18 14:58 MPV 11.0 fL (8.7-11.7) 08/15/18 14:58 Neut % (Auto) 68.6 % (39.3-74.2) 08/15/18 14:58 Lymph % (Auto) 21.3 % (15.0-45.0) 08/15/18 14:58 [place] % (Auto) 7.3 % (4.5-13.0) 08/15/18 14:58 Eos % (Auto) 1.2 % (0.6-7.6) 08/15/18 14:58 Baso % (Auto) 0.6 % (0.3-1.7) 08/15/18 14:58 Nucleat RBC Rel Count 0.0 % (0.0-0.2) 08/15/18 14:58 Absolute Neuts (auto) 6.16 10^3/uL (1.70-6.50) 08/15/18 14:58 Absolute Lymphs (auto) 1.91 10^3/uL (1.00-3.00) 08/15/18 14:58 Absolute Monos (auto) 0.66 10^3/uL (0.30-0.80) 08/15/18 14:58 Absolute Eos (auto) 0.11 10^3/uL (0.03-0.40) 08/15/18 14:58 Absolute Basos (auto) 0.05 10^3/uL (0.02-0.10) 08/15/18 14:58 Absolute Nucleated RBC 0.00 10^3/uL (0-0.01) 08/15/18 14:58 Immature Gran % 1.0 % (0.0-1.1) 08/15/18 14:58 Immature Gran # 0.09 10^3/uL (0.00-0.10) 08/15/18 14:58 PT 13.1 SEC (12.0-15.0) 08/15/18 14:58 INR 0.97 (0.83-1.16) 08/15/18 14:58 APTT 25.3 SEC (23.0-38.0) 08/15/18 14:58 D-Dimer 1.99 ug/mLFEU (0.00-0.50) H 08/15/18 14:58 Sodium 131 mEq/L (135-145) L 08/16/18 04:00 Potassium 4.6 mEq/L (3.5-5.2) 08/16/18 04:00 Chloride 100 mEq/L (97-110) 08/16/18 04:00 Carbon Dioxide 24 mEq/l (22-31) 08/16/18 04:00 Anion Gap 7 mEq/L (6-14) 08/16/18 04:00 BUN 9 mg/dL (7-23) 08/16/18 04:00 Creatinine 0.6 mg/dL (0.7-1.3) L 08/16/18 04:00 Estimated GFR > 60 08/16/18 04:00 Glucose 230 mg/dL (70-100) H 08/16/18 04:00 POC Glucose 152 mg/dL (70-100) H 08/16/18 08:34 Calcium 8.6 mg/dL (8.5-10.4) 08/16/18 04:00 Magnesium 1.9 mg/dL (1.6-2.3) 08/16/18 04:00 Total Bilirubin 0.5 mg/dL (0.1-1.4) 08/15/18 14:00 Conjugated Bilirubin 0.4 mg/dL (0.0-0.5) 08/15/18 14:00 Unconjugated Bilirubin 0.1 mg/dL (0.0-1.1) 08/15/18 14:00 AST 68 IU/L (17-59) H 08/15/18 14:00 ALT 110 IU/L (21-72) H 08/15/18 14:00 Alkaline Phosphatase 208 IU/L (38-126) H 08/15/18 14:00 POC Troponin I 0.02 ng/mL (0.00-0.08) 08/15/18 15:02 Troponin I 0.030 ng/mL (0.000-0.034) 08/16/18 04:00 Total Protein 8.0 g/dL (6.3-8.2) 08/15/18 14:00 Albumin 4.3 g/dL (3.5-5.0) 08/15/18 14:00 Lipase 315 IU/L (23-300) H 08/15/18 14:00 TSH 5.070 uIU/mL (0.465-4.680) H 08/15/18 19:30 Urine Color PALE YELLOW 08/15/18 18: Urine Appearance CLEAR 08/15/18 18: Urine pH 7.0 (5.0-7.5) 08/15/18 18: Ur Specific Mayer 1.002 (1.002-1.030) 08/15/18 18: Urine Protein NEGATIVE (NEGATIVE) 08/15/18 18: Urine Ketones NEGATIVE (NEGATIVE) 08/15/18 18: Urine Blood 1+ (NEGATIVE) H 08/15/18 18: Urine Nitrate NEGATIVE (NEGATIVE) 08/15/18 18: Urine Bilirubin NEGATIVE (NEGATIVE) 08/15/18 18: Urine Urobilinogen NEGATIVE EU (0.2-1.0) 08/15/18 18:26 Ur Leukocyte Esterase NEGATIVE (NEGATIVE) 08/15/18 18: Urine RBC 1-3 /hpf (0-3) 08/15/18 18:26 Urine WBC 1-3 /hpf (0-3) 08/15/18 18:26 Ur Epithelial Cells NONE SEEN /lpf (NONE-1+) 08/15/18 18:26 Ur Random Sodium 27 mEq/L (30-90) L 08/15/18 18:26 Urine Glucose NEGATIVE (NEGATIVE) 08/15/18 18:26 Urine Opiates Screen NEGATIVE ng/mL (NEGATIVE) 08/15/18 18:26 Urine Barbiturates NEGATIVE ng/mL (NEGATIVE) 08/15/18 18:26 Ur Phencyclidine Scrn NEGATIVE ng/mL (NEGATIVE) 08/15/18 18:26 Ur Amphetamines Screen NEGATIVE ng/mL (NEGATIVE) 08/15/18 18:26 U Benzodiazepines Scrn NEGATIVE ng/mL (NEGATIVE) 08/15/18 18: Urine Cocaine Screen NEGATIVE ng/mL (NEGATIVE) 08/15/18 18: U Marijuana (THC) Screen 66 ng/mL (NEGATIVE) 08/15/18 18: Ethyl Alcohol < 10 mg/dL (0-10) 08/15/18 14:58 A/P Assessment: This is a 52-year-old male seen in consultation on the PCU with an episode of possible syncope. Interestingly, the event was not witnessed however he was found down on the sidewalk and apparently awakened by his neighbors. There were no documented arrhythmias. EMS did not document any hemodynamic instability. Since arrival here he has been in sinus rhythm and hemodynamically stable. He has not had any ECG changes and his cardiac enzymes are benign. Importantly, he did suffer a cardiac arrest back in 2010 at a [facility]. I was involved in his care at that time and my recollection is that he very likely had an episode of PEA in the setting of severe pneumonia however I do not have documentation of that. Obviously, this increases are level of suspicion with respect to a possible malignant cardiac condition that may have been causative in his recent episode of syncope. Plan: 1. To start with I would like to try to get records from his [facility] hospitalization back in 2010. 2. I have ordered an echocardiogram. 3. We will continue to monitor him on telemetry. 4. I have ordered an EKG to be done in the morning. 5. I would like to check orthostatic vital signs. 6. At a minimum I think that we should place an implanted loop recorder prior to hospital discharge. We may, however, consider full electrophysiologic testing depending on his clinical course. 7. We will follow along with you. Review of Systems Review of Systems: - Review of Systems Constitutional: no symptoms reported EENTM: no symptoms reported Respiratory: see HPI Cardiac: see HPI Gastrointestinal/Abdominal: no symptoms reported Genitourinary: no symptoms Musculoskelatal: no symptoms Skin: no symptoms Neurological: no symptoms Hematologic/Lymphatic: no symptoms reported Immunologic/allergic: no symptoms reported All Other Systems: Reviewed and Negative
--- NOTE | 2018-08-16 12:03 | ECHO ---
[email or web address] [address] [address] Main: [phone] Fax: Transthoracic Echocardiogram Name: ENOC LUCIO MR#: [id number] Study Date: 08/16/2018 Study Time: 11:21 AM Date of : 1965 Age: 52 year(s) Height: 182.9 cm (72 in.) Weight: 125.65 kg (277 lb.) BSA: 2.45 m2 Gender: Male Examination: Indication: Cardiac: syncope, Question Hx of Cardiac arrest at outside facility Image Quality: Contrast: Requested by: Nikunj Smiley BP: 132 mmHg/86 mmHg Heart Rate: Rhythm: Normal sinus rhythm Indication: Cardiac: syncope, Question Hx of Cardiac arrest at outside facility Procedure Staff Wet Process Technician: Wilman Mercado RDCS Reading Physician: Enoc Lawrence MD Requesting Provider: Conclusions: Technically limited study with poor acoustic windows. Normal size left ventricle. No LV hypertrophy. Normal global systolic LV function. EF is 71 %. No regional wall motion abnormality. Trivial anterior pericardial effusion. Age-related valvular changes without significant stenosis or insufficiency. Measurements: Chambers Valvular Assessment AV/MV Valvular Assessment TV/PV Normal Normal Normal Name Value Range Name Value Range Name Value Range Ao Macy (MM): 3.6 cm (2.2 cm-3.7 AV Vmax: 1.11 m/s (1 m/s-1.7 PV Vmax: 1.28 m/s (0.6 m/s-0.9 cm) m/s) m/s) IVSd (2D): 1.1 cm (0.6 cm-1.1 AV maxP mmHg ( - ) PV PGmax: 7 mmHg ( - ) cm) LVOT Vmax: 0.92 m/s (0.7 m/s-1.1 LVDd (2D): 4.7 cm (4.2 cm-5.9 m/s) cm) MV E Vmax: 0.61 m/s ( - ) LVDs (2D): 2.8 cm (2.1 cm-4 MV A Vmax: 0.82 m/s ( - ) cm) MV E/A: 0.74 ( - ) LVPWd (2D): 1.2 cm (0.6 cm-1 cm) LVEF (2D): 71 (>=54 %) Continued Measurements: Chambers Valvular Assessment AV/MV Name Value Name Value Patient: ENOC LUCIO Study Date: 08/16/2018 Page 1 of 2 11:21 AM LADs Lon.9 cm MV E/E' Lateral: 6.90 LA Area: 20.7 cm2 LA Volume: 58 ml LA Volume Index: 23.7 ml/m2 Findings: Left Ventricle: Technically limited study with poor acoustic windows. Normal size left ventricle. No LV hypertrophy. Normal global systolic LV function. EF is 71 %. No regional wall motion abnormality. Grade 1 diastolic dysfunction (abnormal relaxation). Right Ventricle: Normal size right ventricle. Normal RV function. Left Atrium: The left atrium is normal in size. Right Atrium: The right atrium is normal in size. Mitral Valve: The mitral valve is normal in appearance and function. Mild mitral annular calcification. There is no significant mitral valve regurgitation. Aortic Valve: The aortic valve is tri-leaflet. Mild aortic cusp calcification is noted. Tricuspid Valve: The tricuspid valve is normal in appearance and function. Pulmonic Valve: The pulmonic valve is normal in appearance and function. Aorta: The aorta is normal. Pericardium: Trivial anterior pericardial effusion. (No Signature Object) Patient: ENOC LUCIO Study Date: 08/16/2018 Page 2 of 2 11:21 AM [id number]
--- NOTE | 2018-08-16 12:18 | GCON ---
NEUROLOGIC CONSULTATION REFERRING PHYSICIAN: Nikunj Smiley MD HISTORY: The patient is a 52-year-old gentleman whom I am asked to see in neurologic consultation re garding an episode of loss of consciousness. There is a history of a prior cardiac arrest. He was f ound unresponsive on the sidewalk yesterday. He says he does not remember any of the event. He grad ually became responsive after several minutes. He says that he has not had a seizure that he knows o f and has never specifically had any episodes of stroke or TIA. He is followed at the [facility]. Currently, he says he does not feel much pain. He denies focal numbness or weakness. No other c lear precipitating cause for this. He was complaining of left chest pain when he saw Dr. Baljit aguilera at 7/10, stabbing pain, and worse when he took a deep breath. Additional past medical history of depression, schizophrenia, hyperlipidemia, obesity, hypertension. SOCIAL HISTORY: He smokes regularly, a pack a day. Occasional cannabis and reportedly no alcohol. Housing through [employer]. ALLERGIES: No listed allergies. MEDICATIONS: Drugs listed from home medication include Abilify, Lipitor, Neurontin, Synthroid, venla faxine, metformin, amlodipine. PHYSICAL EXAMINATION: VITAL SIGNS: The current examination, blood pressure 132/86, pulse 78, respir ations 19, temperature 37.2. GENERAL: He is overweight, lying in the bed, in no acute distress. EY ES: Clear. NECK: Supple, with no bruits or masses. CARDIAC: Regular rate and rhythm. No murmur. NEUROLOGIC: He is awake and mildly lethargic, but able to communicate effectively. He knows his lo cation and his name and the general situation, but he does not remember any of the details as to why he lost consciousness. He has a flat affect, but is not hallucinating or delusional. He knows the m onth and the year and can follow basic commands. He does not initiate much spontaneous speech but do es answer my questions with short responses, and I do not know his true cognitive baseline. Pupils 3 mm and reactive. Extraocular movements intact. Normal facial sensation and strength. Motor exam: Normal muscle bulk and tone, 5/5 strength. Sensation is preserved for temperature and light touch. Reflexes are 1+. He had a head CT obtained yesterday. This did not show any evidence of an acute hemorrhage. No frac ture seen on the C-spine. LABORATORY STUDIES: Unremarkable CBC. INR 0.97. Urinalysis unremarkable. Chemistry shows hyponatr emia, which is currently 131. He was not acidotic when he came in. Blood glucose a little bit eleva reji in the 150-200 range. Elevated troponin yesterday, but normalized this morning. TSH 5.07. Tox screen was negative, except for some THC. IMPRESSION: Total unit time of 50 minutes. This patient was found unresponsive, without a definitiv e explanation. A syncopal event or cardiac arrhythmia are possibilities. I doubt a TIA or primary i schemic event based on his clinical presentation. Seizure could have been unwitnessed and led to thi s event, but that is uncertain. CT does not show any obvious source for a seizure. I think it would be appropriate to have a brain MRI, looking for any structural lesions, but otherwise, no other spec ific neurologic workup at this point. There is no clear indication for anticonvulsant therapy. /[id number]/MODL
--- NOTE | 2018-08-16 14:13 | HOSPPROG ---
Hospitalist Progress Note Assessment/Plan: 52 y/o male with h/o prior cardiac arrest presents with syncope. Syncope: h/o cardiac arrest in June 2016. Echo done, EF 65%, no WMA. Tox screen +THC. CTA neg for PE. Cardiology has consulted. -Continuous tele monitoring -likely warrants [facility] cardiac event monitor -MRI today per neurology recs Chest pain: Heart score 2 (age and 1-2 risk factors). Trops neg. EKG non- ischemic. RUL pulmonary nodule - 1.5 cm, reviewed CT with pulm -recommend outpt PET CT and if neg, close f/u imaging in 3 months, oncology f/u if PET pos -f/u pulm Tobacco abuse - nicoderm Hyponatremia - Na improved to 131 from 128 -cont fluid restriction, follow Diabetes - MTF held with recent contrast -cont SSI COPD- cont prn albuterol Hypertension- cont norvasc, lisinopril, metoprolol Depression/schizophrenia: on Abilify, gabapentin, seroquel, venlafaxine GREGORY - try to obtain home CPAP Diet: Regular VTE ppx: SCDs Code: Full Dispo: cont inpt Subjective: Pt feels ok, initially denies CP or SOB. But when RN reminds him he had CP before, he then says yes he has left sided chest pain with inspiration. No fevers/chills. No cough. Denies dizziness or lightheadedness. Asks about smoking. Objective: Vital Signs Temp Pulse Resp BP Pulse Ox 37.2 C 68 18 116/87 H 89 L 08/16/18 12:00 08/16/18 12:00 08/16/18 12:00 08/16/18 12:00 08/16/18 12:00 Laboratory Results 08/16/18 04:00 08/15/18 08/16/18 08/17/18 05:59 05:59 05:59 Intake Total 2214 Balance 2214 PT 13.1 SEC (12.0-15.0) 08/15/18 14:58 INR 0.97 (0.83-1.16) 08/15/18 14:58 - Physical Exam Constitutional: no apparent distress Eyes: PERRL Ears, Nose, Mouth, Throat: moist mucous membranes Cardiovascular: regular rate and rhythym Respiratory: no respiratory distress, reduced air movement, expiratory wheeze Gastrointestinal: normoactive bowel sounds, soft, non-tender abdomen Skin: warm Musculoskeletal: full muscle strength Psychiatric: poor insight ICD10 Worksheet Patient Problems: Problems Problem Status Onset Syncope Acute
[2018-08-16] MEDS ORDERED: GADOBUTROL 10 ML VIAL IVP ONE (14:20)
--- NOTE | 2018-08-16 16:32 | ASMTCAGE ---
CAGE Do you feel you ought to Answers: No cut down on your drinking or drug use? Do people annoy you by Answers: Yes criticizing your drinking or drug use? Do you feel guilty about Answers: No your drinking or drug use? Do you drink or use drugs Answers: No first thing in the morning ([facility])? Additional Comments pt reports smoking 1gm of marijuana per week. Does not want to cut back. Date Signed: 08/16/2018 04:31 PM Electronically Signed By:Razia Velasquez RN
--- NOTE | 2018-08-16 16:50 | ASMTCMCOM ---
CM Note CM Note Notes: 08/16/2018 Case Management Note Met w/pt and sister Carla [phone] (cell), (home). Carla has a trip planned to [facility] d/t her medical issues. There is no other family involved with pt cares. Pt is well connected with [facility]. Kelly Dela Cruz is the case planner. Dr. King is [facility] psychiatrist Dr. Parsons with [facility] is PCP. Pt as a financial planning adviser arranged by [facility] come twice a week to help buy groceries, cook meals and keep up the house. Pt lives alone at [address] [place] [address] in [facility]. OLGA Gilliland from [facility] comes once a week for med management. There are no therapies ordered at this time. Case Management d/c poc: independent with resumption of services and supports organized by [facility]. Case Management to follow. Date Signed: 08/16/2018 04:50 PM Electronically Signed By:Razia Velasquez RN
[2018-08-16] MEDS: ACETAMINOPHEN 325 MG TAB PO PRN (17:20)
[2018-08-16] MEDS: NS 1,000 ML IV SCH (18:55)
[2018-08-16] MEDS ORDERED: POTASSIUM CL 10 MEQ TAB PO ONE (19:47)
[2018-08-16] MEDS: QUEtiapine FUMARATE 100 MG TAB PO SCH (22:35)
[2018-08-16] MEDS: MELATONIN 3 MG TAB PO SCH (22:35)
[2018-08-16] MEDS: QUEtiapine FUMARATE 50 MG TAB PO SCH (22:35)
[2018-08-17] MEDS: GABAPENTIN 100 MG CAP PO SCH ×4 (05:11→20:20)
[2018-08-17] MEDS: LEVOTHYROXINE 25 MCG TAB PO SCH (05:11)
[2018-08-17] MEDS ORDERED: MAGNESIUM SULF 1 GM/DEXTROSE 100 ML IV ONE (05:20)
[2018-08-17] MEDS: TAMSULOSIN HCL 0.4 MG CAP PO SCH (09:12)
[2018-08-17] MEDS: VENLAFAXINE XR 75 MG CAP PO SCH (09:12)
[2018-08-17] MEDS: ATORVASTATIN CALCIUM 40 MG TAB PO SCH (09:12)
[2018-08-17] MEDS: METOPROLOL TARTRATE 25 MG TAB PO SCH ×2 (09:13→20:19)
[2018-08-17] MEDS: ARIPiprazole 10 MG TAB PO SCH (09:13)
[2018-08-17] MEDS: LISINOPRIL 40 MG TAB PO SCH (09:14)
[2018-08-17] MEDS: amLODIPine BESYLATE 5 MG TAB PO SCH (09:14)
--- NOTE | 2018-08-17 09:16 | NEUROPROG ---
Assessment: Brain MRI is unremarkable. At this point, we do not have clear evidence of a primary neurologic event to account for this. I will sign off and please re- consult with any additional questions. Objective: Vital Signs Temp Pulse Resp BP Pulse Ox 36.8 C 65 19 132/89 H 94 08/17/18 03:52 08/17/18 09:13 08/17/18 03:52 08/17/18 09:14 08/17/18 03:52 Laboratory Results 08/17/18 03:56 08/16/18 08/17/18 08/18/18 05:59 05:59 05:59 Intake Total 2214 1700 Balance 2214 1700 PT 13.1 SEC (12.0-15.0) 08/15/18 14:58 INR 0.97 (0.83-1.16) 08/15/18 14:58 Allergies/Adverse Reactions: No Known Allergies Allergy (Unverified 01/10/11 17:15)
[2018-08-17] MEDS: INSULIN LISPRO 100 UNIT/ML SC SCH ×3 (09:38→17:13)
--- NOTE | 2018-08-17 11:01 | HOSPPROG ---
Hospitalist Progress Note Assessment/Plan: 52 y/o male with h/o prior cardiac arrest presents with syncope. Syncope: h/o cardiac arrest noted. Echo done, EF 65%, no WMA. Tox screen + THC. CTA neg for PE. Orthostatics neg. Cardiology and neurology has consulted. MRI unrevealing. Discussed with Dr. Almanza, consider outpt EEG if no other etiology found, notes would not treat if this was first seizure. -Continuous tele monitoring -likely warrants halfway cardiac event monitor, possibly LINQ -obtain records from OSH regarding prior cardiac arrest Chest pain: Heart score 2 (age and 1-2 risk factors). Trops neg. EKG non- ischemic. RUL pulmonary nodule - 1.5 cm, reviewed CT with pulm -recommend outpt PET CT and if neg, close f/u imaging in 3 months, oncology f/u if PET pos -outpt f/u with pulm Tobacco abuse - nicoderm Hyponatremia - Na improved to 131 from 128 -cont fluid restriction, follow Diabetes - MTF held with recent contrast -cont SSI COPD- cont prn albuterol Hypertension- cont norvasc, lisinopril, metoprolol Depression/schizophrenia: on Abilify, gabapentin, seroquel, venlafaxine GREGORY - try to obtain home CPAP Diet: Regular VTE ppx: SCDs Code: Full Dispo: cont inpt Subjective: Pt feels ok, slept well. Denies CP, SOB or dizziness. Objective: Vital Signs Temp Pulse Resp BP Pulse Ox 36.4 C 64 18 107/73 100 08/17/18 09:10 08/17/18 10:41 08/17/18 10:41 08/17/18 09:24 08/17/18 10:41 Laboratory Results 08/17/18 03:56 08/16/18 08/17/18 08/18/18 05:59 05:59 05:59 Intake Total 2214 1700 320 Balance 2214 1700 320 PT 13.1 SEC (12.0-15.0) 08/15/18 14:58 INR 0.97 (0.83-1.16) 08/15/18 14:58 - Physical Exam Constitutional: no apparent distress Eyes: PERRL Ears, Nose, Mouth, Throat: moist mucous membranes Cardiovascular: regular rate and rhythym Respiratory: no respiratory distress, clear to auscultation Gastrointestinal: normoactive bowel sounds, soft, non-tender abdomen Skin: warm Musculoskeletal: full muscle strength Neurologic: AAOx3 Psychiatric: interacting appropriately ICD10 Worksheet Patient Problems: Problems Problem Status Onset Syncope Acute
--- NOTE | 2018-08-17 11:02 | SOAPPROG ---
SOAP Progress Note Assessment/Plan: Assessment: Syncope. The exact etiology is not entirely clear. Certainly his psychiatric history and multiple psychiatric medications cloud the picture. Unfortunately, we have not yet received his records from [facility] from 2010 at which time he suffered a cardiac arrest in the setting of what I remember is being bilateral severe pneumonia. There have been no arrhythmias noted on telemetry. Plan: 1. We will continue to monitor him on telemetry. 2. I wonder if Neurology might be interested in performing an EEG. 3. Tomorrow, hopefully will be able to get his records from his previous hospitalization. 4. Depending on review of those records, I believe that, at a minimum, we should place an implanted loop recorder prior to hospital discharge. 08/17/18 11:00 Subjective: When I went to visit him he was sleeping. He states he has been feeling well. He has not had any recurrent symptoms of dizziness or lightheadedness. No arrhythmias are noted on telemetry. He has been seen by Neurology. MRI of the brain was noted to be normal. Unfortunately, we were not able to get his records from [facility]. Objective: Vital Signs Temp Pulse Resp BP Pulse Ox 36.4 C 64 18 107/73 100 08/17/18 09:10 08/17/18 10:41 08/17/18 10:41 08/17/18 09:24 08/17/18 10:41 Laboratory Results 08/17/18 03:56 08/16/18 08/17/18 08/18/18 05:59 05:59 05:59 Intake Total 2214 1700 320 Balance 2214 1700 320 PT 13.1 SEC (12.0-15.0) 08/15/18 14:58 INR 0.97 (0.83-1.16) 08/15/18 14:58 Physical Exam - Physical Exam General Appearance: WD/WN Neck: non-tender Respiratory: lungs clear Cardiac/Chest: regular rate, rhythm Neuro/Psych: oriented x 3 ICD10 Worksheet Patient Problems: Problems Problem Status Onset Syncope Acute
--- NOTE | 2018-08-17 11:25 | PDMN ---
Medical Necessity Medical necessity: Change to inpt at of 08/16/18 @ 14:28 per MD order and [facility] M- 340, Syncope, 52 y/o w/hx of cardiac arrest in Jun 2016 [address] on [address] by neighbor, admitted w/syncope, hyponatremia, and hypomagnesemia. Other PNH includes diabetes, COPD, HTN, depression/schizophrenia. Upgraded to inpt for further diagnostic workup, may need implanted loop monitor or possibly EP study , Na still low at 131. Est LOS>2MN for ongoing eval/management of above.
--- NOTE | 2018-08-17 14:10 | ASMTCMCOM ---
CM Note CM Note Notes: 08/17/2018 Case Management Note Please see previous case management note for extensive details. Discussed pt during rounds this morning. Planning for implanted loop recorder prior to discharge. Home Nurse Darshana Kaur can be reached at [phone]. Carine Dela Cruz telephonic case manager for [facility] can be reached at [phone]. Case Management d/c poc: independent with resumption of services and supports orgainzed by [facility]. Case Management to follow. Date Signed: 08/17/2018 02:10 PM Electronically Signed By:Razia Velasquez RN
[2018-08-17] MEDS: ACETAMINOPHEN 325 MG TAB PO PRN (14:53)
[2018-08-17] MEDS: NICOTINE 21 MG/24 HR PATCH TD SCH (15:13)
[2018-08-17] MEDS: QUEtiapine FUMARATE 100 MG TAB PO SCH (20:19)
[2018-08-17] MEDS: MELATONIN 3 MG TAB PO SCH (20:19)
[2018-08-17] MEDS: QUEtiapine FUMARATE 50 MG TAB PO SCH (20:20)
[2018-08-18] MEDS: GABAPENTIN 100 MG CAP PO SCH ×3 (05:06→15:49)
[2018-08-18] MEDS: LEVOTHYROXINE 25 MCG TAB PO SCH (05:06)
--- NOTE | 2018-08-18 05:11 | CPEKG ---
Test Reason : OPEN Blood Pressure : / mmHG Vent. Rate : 067 BPM Atrial Rate : 067 BPM P-R Int : 200 ms QRS Dur : 092 ms QT Int : 419 ms P-R-T Axes : 058 067 061 degrees QTc Int : 443 ms Sinus rhythm Confirmed by Eliecer Mcmahan ([id number]) on 08/18/2018 5:11:04 AM Referred By: Confirmed By:Eliecer Mcmahan
[2018-08-18] MEDS: INSULIN LISPRO 100 UNIT/ML SC SCH ×2 (09:16→12:30)
[2018-08-18] MEDS: NICOTINE 21 MG/24 HR PATCH TD SCH (09:19)
[2018-08-18] MEDS: METOPROLOL TARTRATE 25 MG TAB PO SCH (09:20)
[2018-08-18] MEDS: amLODIPine BESYLATE 5 MG TAB PO SCH (09:20)
[2018-08-18] MEDS: ARIPiprazole 10 MG TAB PO SCH (09:21)
[2018-08-18] MEDS: LISINOPRIL 40 MG TAB PO SCH (09:21)
[2018-08-18] MEDS: ATORVASTATIN CALCIUM 40 MG TAB PO SCH (09:21)
[2018-08-18] MEDS: VENLAFAXINE XR 75 MG CAP PO SCH (09:21)
[2018-08-18] MEDS: TAMSULOSIN HCL 0.4 MG CAP PO SCH (09:21)
[2018-08-18] MEDS ORDERED: MAGNESIUM SULF 1 GM/DEXTROSE 100 ML IV ONE (10:38)
[2018-08-18] MEDS ORDERED: LIDOCAINE 1% 300 MG/30 ML SDV SC ONE (13:15)
--- NOTE | 2018-08-18 13:16 | PDIAF ---
- Diagnosis Diagnosis: syncope, schizophrenia Code Status: Full Code - Medication Management Discharge Medications: electronically signed and located in the Home Medication List. PICC Care - Routine: N/A - Orders Services needed: Home Care, Registered Nurse, Speech Language Pathologist Home Care Face to Face: I certify that this patient was under my care and that I had the required [id number] encounter meeting the encounter requirements on the discharge day. My findings support the fact that the patient is homebound as defined in Home Care Face to Face Continued: CMS Chapter 7 Medicare Benefits Manual 30.1.1 , The condition of the patient is such that there exists a normal inability to leave home and consequently, leaving home would require a considerable and taxing effort. Diet Recommendation: no restrictions on diet Additional Instructions: Follow up with [facility] for PET CT for further evaluation of the pulmonary nodule. Follow up with [facility] and primary care. - Follow Up Care Current Providers and Referrals: Patient,NotPresent [Unknown] - As per Instructions Lynette Grimes MD [Medical Doctor] -
--- NOTE | 2018-08-18 13:21 | PDIAF ---
- Diagnosis Diagnosis: syncope, schizophrenia Code Status: Full Code - Medication Management Discharge Medications: electronically signed and located in the Home Medication List. PICC Care - Routine: N/A - Orders Services needed: Home Care, Registered Nurse, Speech Language Pathologist Home Care Face to Face: I certify that this patient was under my care and that I had the required [id number]-[id number] encounter meeting the encounter requirements on the discharge day. My findings support the fact that the patient is homebound as defined in Home Care Face to Face Continued: CMS Chapter 7 Medicare Benefits Manual 30.1.1 , The condition of the patient is such that there exists a normal inability to leave home and consequently, leaving home would require a considerable and taxing effort. Diet Recommendation: no restrictions on diet Additional Instructions: Follow up with [facility] for PET CT for further evaluation of the pulmonary nodule. Follow up with [facility] and primary care. - Follow Up Care Current Providers and Referrals: Lynette Grimes MD [Medical Doctor] - Patient,NotPresent [Unknown] - As per Instructions Michael Lawrence MD [Medical Doctor] -
--- NOTE | 2018-08-18 14:42 | SOAPPROG ---
SOAP Progress Note Assessment/Plan: Assessment: Syncope. The exact etiology is not entirely clear. Certainly his psychiatric history and multiple psychiatric medications cloud the picture. Unfortunately, we have not yet received his records from [facility] from 2010 at which time he suffered a cardiac arrest in the setting of what I remember is being bilateral severe pneumonia. There have been no arrhythmias noted on telemetry. 08/18/2018: I did receive his records from his hospitalization in 2010 at [facility]. At that time, he experienced an episode of cardiac arrest in the setting of sepsis and bilateral pneumonia as well as hypoxic respiratory failure. He was on mechanical ventilator at that time. In reviewing those records he underwent a coronary angiogram that indicated normal coronaries with only a slightly depressed ejection fraction. Overall I do not think that this prior presentation really impacts our current diagnostic therapeutic strategy. Specifically, I do not think that mandates implantation of an ICD especially in light of his recent normal echocardiogram, normal ECG, negative cardiac enzymes and lack of arrhythmia on telemetry during this hospitalization. Plan: 1. We will plan to place a Medtronic LINQ prior to hospital discharge. 2. Following placement of the Medtronic LINQ I think he can be discharged home. 3. I will see him back in the office for follow-up and to remove his mundo within the next week. 08/18/18 14:36 Subjective: He is doing well today. He has not had any further episodes of syncope. He notes no dizziness or lightheadedness. He denies chest pain and dyspnea. On telemetry he has been in sinus rhythm. Objective: Vital Signs Temp Pulse Resp BP Pulse Ox 36.8 C 83 18 135/94 H 94 08/18/18 12:00 08/18/18 12:00 08/18/18 12:00 08/18/18 12:00 08/18/18 12:00 Laboratory Results 08/18/18 04:35 08/17/18 08/18/18 08/19/18 05:59 05:59 05:59 Intake Total 1699 2054 Balance 1700 2054 PT 13.1 SEC (12.0-15.0) 08/15/18 14:58 INR 0.97 (0.83-1.16) 08/15/18 14:58 Physical Exam - Physical Exam General Appearance: WD/WN, alert, no apparent distress EENT: PERRL/EOMI, normal ENT inspection, pharynx normal, TMs normal Neck: non-tender, full range of motion, supple, normal inspection Respiratory: chest non-tender, lungs clear, normal breath sounds Cardiac/Chest: normal peripheral pulses, regular rate, rhythm Peripheral Pulses: 2+: carotid (R), carotid (L), femoral (R), femoral (L), dorsalis-pedis (R), dorsalis-pedis (L) Abdomen: normal bowel sounds, non-tender, soft Male Genitalia: deferred Rectal: deferred Back: Normal inspection Skin: normal color, warm/dry Extremities: normal range of motion, non-tender, normal inspection, normal capillary refill Neuro/Psych: alert, normal mood/affect, oriented x 3 ICD10 Worksheet Patient Problems: Problems Problem Status Onset Syncope Acute
--- NOTE | 2018-08-18 14:56 | CPIP ---
DATE OF PROCEDURE: 08/18/2018 INDICATIONS: The patient is 52 years old. He presents to the hospital with a history of an unwitnes sed episode of syncope. His workup during this hospital including telemetry monitoring for greater t weber 48 hours has been unremarkable. PROCEDURE: Implantation of a Medtronic LINQ. TECHNIQUE: Following informed consent, and in the fasting state, the patient was brought to the [facility]. The 4th intercostal space was identified by landmarks and marked. The left chest was prepped and d raped in the usual sterile fashion. 2% lidocaine was infiltrated in the skin overlying the 4th inter costal space. Using the 15 blade, a 1 cm incision was made. The Medtronic LINQ was then injected be neath the skin. The wound was closed with 2 mundo. Pressure was held, and a dry dressing was appl ied, as well as Tegaderm. COMPLICATIONS: None. DEVICE INFORMATION: The device is a Medtronic LINQ, model #LNQ11, serial #[id number]. DISPOSITION: The patient will be returned to his room. I anticipate that he will be discharged home today. I will see him back in the office in the next week to remove his mundo. /[id number]/MODL
[2018-08-18 15:06] VITALS: BP 125/87
--- NOTE | 2018-08-18 15:32 | GDS ---
DISCHARGE DIAGNOSES: 1. Possible syncope. 2. Right upper lobe pulmonary nodule which will require PET-CT as the next step in diagnostic workup as an outpatient. 3. Tobacco abuse. 4. Hyponatremia, improved. 5. Diabetes mellitus type 2. 6. Chronic obstructive pulmonary disease. 7. Hypertension. 8. Schizophrenia. 9. Obstructive sleep apnea. HISTORY OF DETAILS: Please see history and physical dated July 2018. In brief, the aidan dangelo is a 52-year-old male with a history of schizophrenia and remote history of cardiac arrest, wh o presented to the emergency department after a presumed syncopal episode. He was apparently found d own on the sidewalk. Upon arrival to the emergency department, cervical spine CT, head CT, and chest x-ray were unremarkable. He was admitted to the hospital for further management. HOSPITAL COURSE: The patient was admitted to the progressive care unit. He was monitored on telemet ry. There was no evidence of cardiac arrhythmia. He had negative troponins and a nonischemic EKG. His drug screen was positive for marijuana. He had an elevated D-dimer, and CTA of the chest was neg ative for pulmonary embolism, but did reveal a 1.5 cm right upper lobe pulmonary nodule which was doug picious for a primary lung cancer especially given his heavy tobacco history. I discussed with the aidan dangelo and his sister that he should undergo outpatient PET-CT for further evaluation. He has appare ntly been fired from the pulmonology clinic due to noncompliance with appointments; therefore, I requ ested he follow up with [facility] for PET-CT, and if this is positive, then he mark l need to undergo biopsy under their direction. Neurology consult was also obtained, and he had a br ain MRI which was unrevealing. On the day of discharge, a LINQ monitor was placed for ongoing outpat ient cardiac event monitoring. He should follow up with Dr. Ramakrishna Lawrence for results on this. He will continue to have home health care services including RN and speech for ongoing cognitive evaluation. I recommend he stop smoking marijuana as this may have been contributory to his syncopal event. No further workup was recommended from Neurology, although if his outpatient cardiac event monitor is un revealing, could consider outpatient referral to Neurology for possible outpatient EEG. DISPOSITION: Patient is discharged home in stable condition with home health services including RN a arina PT. He also has good support services through [facility] for his schizophrenia. FOLLOWUP: 1. [facility] for outpatient PET-CT and further evaluation of his suspicious right upper lobe nodule. 2. Dr. Ramakrishna Lawrence, Cardiology. 3. Primary care. 4. [facility]. DISCHARGE MEDICATIONS: Please see [facility] [place] completed outpatient medication list. There are no new m edications on discharge. He will continue all other outpatient medications as previously prescribed. /[id number]/MODL
--- NOTE | 2018-08-18 16:49 | ASMTDCNOTE ---
Case Management Discharge Discharge Order Complete? Answers: Yes Patient to Obtain Answers: via Family Medications Transportation Arranged Answers: Family/Friends Faxed Final Orders Answers: Yes Notes: [facility] Agency/Facility Transfer Answers: Yes Notes: to [facility] Report Printed & Faxed to Receiving Agency Family Notified Answers: Yes Notes: transporting home Discharge Comments Notes: 08/18/2018 Case Management Note Arranged appointment with Dr.Lori Grimes at [facility] on @ 4 pm. Notified Kelly, senior case manager at [facility], Carla SAUD and Donnie at [facility]. Discussed d/c plan with Darshana Kaur RN for [facility] at [phone]. Faxed discharge orders to [facility]. Discussed with Donnie over the phone. Sister Carla to transport home. Date Signed: 08/18/2018 04:48 PM Electronically Signed By:Razia Velasquez RN
--- NOTE | 2018-08-18 16:49 | ASDISCHSUM ---
Discharge Information Plan Status:Home with Home Health Medically Cleared to Leave:08/17/2018 Discharge Date:08/17/2018 CM D/C Disposition:Home Health Service ADT D/C Disposition:[id number] Projected Discharge Date:08/18/2018 11:00 AM Transportation at D/C:Family Discharge Delay Reason: Follow-Up Date:08/18/2018 11:00 AM Discharge Slot: Final Diagnosis: Placement Information Referral Type:*Home Health Care Services Referral ID:[id number] Provider Name:[facility] Address 1:[address] [address] Address 2: City:[place] Selection Factors: State:[place] Patient Contact Information Contact Name:MARIA INES Relationship: Address: Work Phone: City: [facility] Phone: [facility] Code: Email: Financial Information Financial Class:Medicare Primary Plan Desc:MEDICARE INPATIENT Primary Plan Number:[id number] Secondary Plan Desc:MED[place] Secondary Plan Number:[id number] Assessment Information CAGE Questionnaire CAGE Do you feel you ought to Answers: No cut down on your drinking or drug use? Do people annoy you by Answers: Yes criticizing your drinking or drug use? Do you feel guilty about Answers: No your drinking or drug use? Do you drink or use drugs Answers: No first thing in the morning ([employer]ader)? Additional Comments pt reports smoking 1gm of marijuana per week. Does not want to cut back. Date Signed: 08/16/2018 04:31 PM Electronically Signed By:Razia Velasquez RN [facility] CM Progress Note CM Note CM Note Notes: 08/16/2018 Case Management Note Met w/pt and sister Carla [phone] (cell), (home). Carla has a trip planned to [facility] d/t her medical issues. There is no other family involved with pt cares. Pt is well connected with [facility]. Kelly Dela Cruz is the correctional case manager. Dr. King is [facility] psychiatrist Dr. Parsons with [facility] is PCP. 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 Pt lives alone at [address] [place] [address] [address] [facility]. OLGA Gilliland from [facility] comes once a week for med management. There are no therapies ordered at this time. Case Management d/c poc: independent with resumption of services and supports organized by [facility]. Case Management to follow. Date Signed: 08/16/2018 04:50 PM Electronically Signed By:Razia Velasquez RN [facility] CM Progress Note CM Note CM Note Notes: 08/17/2018 Case Management Note Please see previous case management note for extensive details. Discussed pt during rounds this morning. Planning for implanted loop recorder prior to discharge. Home Nurse Darshana Kaur can be reached at [phone]. Carine Dela Cruz correctional case manager for [facility] can be reached at [phone]. Case Management d/c poc: independent with resumption of services and supports orgainzed by [facility]. Case Management to follow. Date Signed: 08/17/2018 02:10 PM Electronically Signed By:Razia Velasquez RN Case Management Discharge Plan Note Case Management Discharge Discharge Order Complete? Answers: Yes Patient to Obtain Answers: via Family Medications Transportation Arranged Answers: Family/Friends Faxed Final Orders Answers: Yes Notes: [facility] Agency/Facility Transfer Answers: Yes Notes: to [facility] Report Printed & Faxed to Receiving Agency Family Notified Answers: Yes Notes: transporting home Discharge Comments Notes: 08/18/2018 Case Management Note Arranged appointment with Dr.Lori Grimes at [facility] on @ 4 pm. Notified Kelly, correctional case manager at [facility], Carla SMITHADELAIDE and Donnie at [facility]. Discussed d/c plan with Darshana Kaur RN for [facility] at [phone]. Faxed discharge orders to [facility]. Discussed with Donnie over the phone. Sister Carla to transport home. Date Signed: 08/18/2018 04:48 PM Electronically Signed By:Razia Velasquez RN Intervention Information
--- NOTE | 2018-08-18 16:50 | ASMTLACE ---
LISA Length of stay for Answers: 2 days current admission Acuity / Level of Answers: No Care: Did the patient have an inpatient admission? Comorbidities - select Answers: Chronic pulmonary disease all that apply Diabetes (uncontrolled or controlled) Other Notes: h/o cardiac arrest, paranoid schizophrenia, depresso n, COPD, HTN # of Emergency department Answers: 1-2 visits in the last 6 months Social determinants Answers: Mental health diagnosis (anxiety, depression, pers onality disorders, etc.) Score: 10 Date Signed: 08/18/2018 04:50 PM Electronically Signed By:Razia Velasquez RN
== END 2018-08-18 16:52 | disposition home health service (06) | DRG 261 ==
LOC: EDUNIT# → F2W 17:02 → OBSVTOIN 08-16 14:28
PROVIDERS: ADMIT Internal Medicine; ATTEND Internal Medicine
PROC: 0JH602Z Insertion of Monitoring Device into Chest Subcutaneous Tissue and Fascia, Open Approach (ICD-10-PCS; principal; 2018-08-18)
DX: R55 Syncope and collapse (principal); E87.1 Hypo-osmolality and hyponatremia; F20.0 Paranoid schizophrenia; E86.9 Volume depletion, unspecified; F12.90 Cannabis use, unspecified, uncomplicated; R91.1 Solitary pulmonary nodule; E83.42 Hypomagnesemia; E11.9 Type 2 diabetes mellitus without complications; J44.9 Chronic obstructive pulmonary disease, unspecified; I10 Essential (primary) hypertension; G47.33 Obstructive sleep apnea (adult) (pediatric); E78.5 Hyperlipidemia, unspecified; E66.01 Morbid (severe) obesity due to excess calories; Z72.0 Tobacco use; Z86.74 Personal history of sudden cardiac arrest; Z79.84 Long term (current) use of oral hypoglycemic drugs
CPT/HCPCS: 80307; 84484-ER; 92507-GN; 92523-GN; A9585; C1764; G0378; G0480; J1815; J3475; Q9967

== ENCOUNTER → 2018-10-29 | Outpatient (CLI) | payer OTHER, MEDICAID ==
[~2018-10-29] MED LIST changes: -IOPAMIDOL (ISOVUE 370) 100 ML BTL IV ONE; +LIDOCAINE 1% 300 MG/30 ML SDV ONE
== END ==
LOC: FIMAGING 13:19
PROVIDERS: ATTEND Internal Medicine Hematology & Oncology
DX: R05 Cough (principal); J90 Pleural effusion, not elsewhere classified

== ENCOUNTER → 2018-11-14 | Outpatient (CLI) | payer OTHER, MEDICAID | LOC: FIMAGING 10:50 | PROVIDERS: ATTEND Physician Assistant | DX: J98.09 Other diseases of bronchus, not elsewhere classified (principal); R91.1 Solitary pulmonary nodule ==